=== PATIENT | male | born 1955 | race Native Hawaiian/Other Pacific Islander ===

== ENCOUNTER 2022-10-06 03:11 | Emergency (ER) | payer OTHER, MEDICARE ==
[~2022-10-06] VITALS: Ht 175.3 cm; Wt 117.9 kg
[2022-10-06 03:15] VITALS: TEMP 98.3
[2022-10-06 03:57] LABS: PLATELET COUNT 220 K/uL (142-355)
[2022-10-06 04:22] LABS: POTASSIUM 4.3 mmol/L (3.6-5.2)
[2022-10-06 06:10] VITALS: BP 152/90
== END 2022-10-06 06:10 | disposition home or self-care (01) ==
LOC: ED 03:11
PROVIDERS: Family Medicine
DX: K29.00 Acute gastritis without bleeding (principal); S29.012A Strain of muscle and tendon of back wall of thorax, initial encounter; R11.2 Nausea with vomiting, unspecified; X58.XXXA Exposure to other specified factors, initial encounter; Y92.89 Other specified places as the place of occurrence of the external cause
CPT/HCPCS: 36415; 80053; 80307; 82150; 82550; 83690; 84484; 85027; 87502; 93005; 96360; 96374; 96375; 99284; J1885; J2270; J2405